=== PATIENT | female | born 1975 | race Caucasian/White ===

== ENCOUNTER 2016-09-04 11:58 | Emergency (ER) | payer OTHER ==
[~2016-09-04] VITALS: Ht 165.1 cm; Wt 86.2 kg
[2016-09-04 11:58] VITALS: BP 122/78
[~2016-09-04 11:58] MED LIST: BUPR100T4 PO; FLUO40CA8 PO; LEVO125T PO; TRAZ-144 PO; ZIPR60CA2 PO
[2016-09-04 12:46] LABS: PREGNANCY TEST URINE QUAL NEGATIVE (NEGATIVE)
[2016-09-04 12:58] LABS: ADD UA MICROSCOPIC YES; KETONES,URINE NEGATIVE (NEGATIVE); LEUKOCYTE ESTERASE ,URINE 3+ (NEGATIVE)
[2016-09-04 13:02] LABS: ADD URINE CULTURE YES; RBC,URINE 21-50 /HPF (0-2); WBC,URINE 81-100 /HPF (0-3)
== END 2016-09-04 13:05 | disposition home or self-care (01) ==
LOC: ER 12:02
DX: N30.00 Acute cystitis without hematuria (principal); F32.9 Major depressive disorder, single episode, unspecified; E03.9 Hypothyroidism, unspecified; F17.210 Nicotine dependence, cigarettes, uncomplicated; F10.20 Alcohol dependence, uncomplicated
CPT/HCPCS: 81000-TC; 84703-TC; 87086-TC; 87186-TC; A4606; Z7610

== ENCOUNTER 2017-03-08 16:12 | Emergency (ER) | payer OTHER ==
[~2017-03-08] VITALS: Ht 167.6 cm; Wt 83.9 kg
--- NOTE | 2017-03-08 16:26 | NUR ---
PT AMBULATORY TO ER BED 09. C/O DYSURIA X 2 DAYS. THIKS SHE HAS UTI. ALSO C/O HEADACHE W SORE THROAT. 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 GOWNED AND PLACED ON MONITOR. AWAITING MD CARRILLO.
--- NOTE | 2017-03-08 17:05 | NUR ---
DR VEGA AT BEDSIDE FOR EVAL.
[2017-03-08] MEDS ORDERED: PENICILLIN G BENZATHINE 2.4 MMU/4 ML ML IM ONE ×2 (17:25→17:30)
[2017-03-08] MEDS ORDERED: DEXAMETHASONE SOD PHOSPHATE 10 MG/ML VIAL ONE (17:25)
[2017-03-08] MEDS ORDERED: ACETAMINOPHEN ES 500 MG TABLET ONE (17:26)
[2017-03-08 17:30] LABS: BASOPHILS # (AUTO) 0.4 /CMM (0.0-0.2); EOSINOPHILS % (AUTO) 0.3 % (0.0-6.0); HEMATOCRIT 40 % (33-45); HEMOGLOBIN 13.4 g/dL (11.5-14.8); LYMPHOCYTES # (AUTO) 0.8 /CMM (0.8-4.8); LYMPHOCYTES % (AUTO) 7.7 % (20.0-44.0); MEAN CORPUSCULAR HEMOGLOBIN 30 PG (26.0-33.0); MEAN CORPUSCULAR HGB CONC 33 g/dl (31.0-36.0); MEAN CORPUSCULAR VOLUME 89 fL (82-100); MONOCYTES # (AUTO) 0.7 /CMM (0.1-1.30); MONOCYTES % (AUTO) 6.5 % (2.0-12.0); NEUTROPHILS # (AUTO) 8.7 /CMM (1.8-8.9); NEUTROPHILS % (AUTO) 81.5 % (43.0-81.0); PLATELET COUNT (AUTO) 293 /CMM (150-450); RDW COEFFICIENT OF VARIATION 11.9 (11.5-15.0); RED BLOOD CELL COUNT(AUTO) 4.51 MIL/uL (4.0-5.2); WHITE BLOOD COUNT (AUTO) 10.6 K/uL (4.3-11.0)
[2017-03-08] MEDS ORDERED: IV NS 0.9% 500 ML BAG IV ONE (17:30)
[2017-03-08] MEDS ORDERED: DEXAMETHASONE SOD PHOSPHATE 10 MG/ML VIAL IV ONE (17:30)
[2017-03-08] MEDS ORDERED: ACETAMINOPHEN ES 500 MG TABLET PO ONE (17:30)
[2017-03-08 17:52] LABS: APPEARANCE,URINE Slightly Cloudy (CLEAR); BILIRUBIN,URINE SMALL (NEGATIVE); BLOOD, URINE Moderate Ery/uL (NEGATIVE); COLOR,URINE Yellow (YELLOW); KETONES,URINE Trace (NEGATIVE); LEUKOCYTE ESTERASE ,URINE Small (NEGATIVE); NITRITE, URINE Negative (NEGATIVE); PH,URINE 5.5 (5.0-8.0); PROTEIN,URINE 100 mg/dl (NEGATIVE); UGLUCOSE 100 MG/DL mg/dL (NEGATIVE); UROBILINOGEN,URINE >=8.0 EU/dL (0.2)
[2017-03-08 18:06] LABS: BACTERIA,URINE Moderate /HPF (None Seen); SQUAMOUS EPITHELIAL CELL,UR Moderate /HPF (None Seen); YEAST,URINE Few /HPF (None Seen)
[2017-03-08 18:09] LABS: CALCIUM, SERUM 8.5 mg/dL (8.5-10.1); CREATININE 0.9 mg/dL (0.6-1.3); POTASSIUM 3.7 mmol/L (3.5-5.1)
[2017-03-08 18:29] VITALS: BP 144/70
--- NOTE | 2017-03-08 18:32 | NUR ---
Patient discharged to home in stable condition. Written and verbal after care instructions given. Patient verbalizes understanding of instruction.IV removed. Catheter intact and site benign. Pressure and 4x4 applied to site. No bleeding noted. prescriptions given. no further complaints.
[2017-03-08 18:33] LABS: BAND % (MANUAL) 5 % (0.0-5.0); LYMPHOCYTES % (MANUAL) 7 % (16-48); MONOCYTES % (MANUAL) 6 % (0-11.0); NEUTROPHILS % (MANUAL) 82 (42-76)
== END 2017-03-08 18:30 | disposition home or self-care (01) ==
LOC: ER 16:14
DX: N30.00 Acute cystitis without hematuria (principal); F32.9 Major depressive disorder, single episode, unspecified; E03.9 Hypothyroidism, unspecified; F17.200 Nicotine dependence, unspecified, uncomplicated
CPT/HCPCS: 36415; 80048; 81001; 85025; 87077; 87086; 87186; 96372; 96374; 99284; A4606; J0558; J1100; J7040 ×2; Z7610; 81000-TC

== ENCOUNTER 2017-09-26 14:43 | Emergency (ER) | payer OTHER ==
[~2017-09-26] VITALS: Ht 165.1 cm; Wt 83.9 kg
[2017-09-26 14:55] VITALS: BP 123/70
[2017-09-26] MEDS ORDERED: ONDANSETRON 4 MG TAB.RAPDIS ONE (15:16)
[2017-09-26] MEDS ORDERED: ONDANSETRON 4 MG TAB.RAPDIS PO ONE (15:30)
== END 2017-09-26 15:20 | disposition home or self-care (01) ==
LOC: ER 14:46
DX: R19.7 Diarrhea, unspecified (principal); R11.0 Nausea; F32.9 Major depressive disorder, single episode, unspecified; E03.9 Hypothyroidism, unspecified; F17.200 Nicotine dependence, unspecified, uncomplicated
CPT/HCPCS: A4606; Q0162; Z7610

== ENCOUNTER 2017-12-24 14:45 | Emergency (ER) | payer MEDICARE, OTHER ==
[~2017-12-24] VITALS: Ht 165.1 cm; Wt 83.9 kg
[2017-12-24 14:45] VITALS: BP 122/90
[2017-12-24] MEDS ORDERED: IBUPROFEN 600 MG TABLET PO ONE ×2 (15:57→16:00)
== END 2017-12-24 16:55 | disposition home or self-care (01) ==
LOC: ER 14:46
DX: S63.613A Unspecified sprain of left middle finger, initial encounter (principal); E03.9 Hypothyroidism, unspecified; F32.9 Major depressive disorder, single episode, unspecified; F10.10 Alcohol abuse, uncomplicated; F17.290 Nicotine dependence, other tobacco product, uncomplicated; X58.XXXA Exposure to other specified factors, initial encounter; Y93.89 Activity, other specified; Y92.89 Other specified places as the place of occurrence of the external cause; Y99.8 Other external cause status
CPT/HCPCS: 29130; 73140; 99284; 99406; A4606; Z7610